=== PATIENT | female | born 1985 | race Caucasian/White ===

== ENCOUNTER 2018-12-30 21:00 | Inpatient (IN) | payer OTHER ==
[2018-12-30] MEDS ORDERED: ELECTROLYTE-148 SOLN 1,000 ML IV SCH (21:45)
[2018-12-30 22:02] VITALS: BMI 32.3
[2018-12-30] MEDS ORDERED: LABETALOL HCL 5 MG/1 ML (100MG/20 ML VIAL) IVPB ONE (22:06)
[2018-12-30 22:07] LABS: BASO % 0.4 % (0-2.0); EOS % 0.1 % (0-4.5); HEMATOCRIT 32.6 % (32.4-45.2); HEMOGLOBIN 11.1 GM/dL (10.7-15.3); LYMPH % 10.1 % (8-40); MCH 29.6 pg (25.7-33.7); MCHC 34.1 g/dl (32.0-36.0); MEAN CELL VOLUME 86.7 fl (80-96); MEAN PLT VOLUME 8.7 fl (7.5-11.1); MONO % 5.9 % (3.8-10.2); NEUT % 83.5 % (42.8-82.8); PLATELET COUNT 299 K/MM3 (134-434); RBC 3.76 M/mm3 (3.60-5.2); RDW 14.5 % (11.6-15.6); WHITE BLOOD COUNT 11.1 K/mm3 (4.0-10.0)
[2018-12-30 22:13] LABS: URINE APPEARANCE CLEAR; URINE BILIRUBIN NEGATIVE (<2.0 mg/dL); URINE COLOR YELLOW; URINE GLUCOSE (UA) NEGATIVE (NEGATIVE); URINE KETONE 2+ (NEGATIVE); URINE LEUK ESTERASE NEGATIVE (NEGATIVE); URINE NITRITE NEGATIVE (NEGATIVE); URINE PROTEIN 3+ (NEGATIVE); URINE UROBILINOGEN NEGATIVE mg/dL (0.2-1.0)
[2018-12-30 22:16] LABS: EPI CELLS RARE /HPF (FEW); URINE MUCUS RARE
[2018-12-30 22:23] LABS: INR 0.87 (0.83-1.09); PROTHROMBIN TIME (PATIENT) 10.3 SEC (9.7-13.0)
[2018-12-30 22:27] LABS: RATIO URIN PROTEIN/URIN CREAT 1.21 MG/DL
[2018-12-30 22:30] LABS: ALK PHOS 156 U/L (45-117); ANION GAP 11 MMOL/L (8-16); BILIRUBIN,TOTAL 0.4 mg/dL (0.2-1); BLOOD UREA NITROGEN 5 mg/dL (7-18); CALCIUM 9.5 mg/dL (8.5-10.1); CHLORIDE 105 mmol/L (98-107); CO2 22 mmol/L (21-32); CREATININE 0.5 mg/dL (0.55-1.3); GLUCOSE,RANDOM 83 mg/dL (74-106); POTASSIUM 3.9 mmol/L (3.5-5.1); SGOT/AST 14 U/L (15-37); SGPT/ALT 20 U/L (13-61); SODIUM 138 mmol/L (136-145); TOT PROT 6.5 g/dl (6.4-8.2); URIC ACID 3.5 mg/dL (2.6-7.2)
[2018-12-30 23:00] LABS: COCAINE, UR NEGATIVE ng/ml (CUTOFF=300); OPIATES, URI NEGATIVE ng/ml (CUTOFF=300); URINE BARBITURATES NEGATIVE ng/ml (CUTOFF=200); URINE BENZODIAZEPINES NEGATIVE ng/ml (CUTOFF=200)
[2018-12-30 23:01] LABS: METHADONE, UR NEGATIVE ng/ml (CUTOFF=300); PHENCYCLIDINE,URINE NEGATIVE ng/ml (CUTOFF=25); URINE AMPHETAMINES NEGATIVE ng/ml (CUTOFF=500)
--- NOTE | 2018-12-30 23:26 | HP ---
Past Medical History - Primary Care Physician PCP:: Mala Dong - Admission Chief Complaint: 33 yrs , 39.4 weeks admitted due to c/o headache & vomiting today, c/o pain cramps since 2.00 PM stronger & mucous Blood stained from vagina History of Present Illness: pt is late registrant at [address] on 12/17/18 at 37 weeks , gestation only 3 visits in the clinic panel 12/17/18 O Pos, Hbsag neg, Rpr nr, Rubella immune, Varicella immune , Hgb A1a2 Sickle neg, Pap Nilm, Hpv neg , gc/ct neg HgbA1c 5.3, Hiv neg , CF screen neg, Quantiferon neg , GBS neg 12/17/18 Ultrasound SLIUP, Vx, 37.5 wks RUTH ANN 19.2, efw 7'7' (65%tile) , Bpp8/8 BP in clinic 125/81, 135/60, 132/83 , urine protein 1+ History Source: Patient, Medical Record Limitations to Obtaining History: No Limitations - Past Medical History 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 when not h/o migraine headache during pregn once , no meds taken . today c/o headache same as migraine headache, & feels everytime she gets utrine contraction). No: Seizure Cardiovascular: Yes: HTN (during currently) Pulmonary: No: Asthma Gastrointestinal: Yes: Other (c/o vomiting today, unable to hold anything in stomach) Renal/: No: UTI ...: 1 ...Para: 0 ...Term: 0 ...: 0 ...Spon : 0 ...Induced : 0 ...Multiple Gestation: 0 ...LMP: 03/28/18 ... Weeks Gestation by Dates: 39.4 ...EDC by Dates: 01/02/19 ...EDC by Sono: 01/02/19 Infectious Disease: No: AIDS, HIV, STD's, Tuberculosis Psych: No: Addictions, Anxiety, Bipolar, Depression, Panic, Psychosis, Schizophrenia, Other Endocrine: No: Diabetes Mellitus, Hypothyroidism - Past Surgical History Hx Myomectomy: No Hx Transabdominal Cerclage: No Additional Surgical History: h/o bilateral breast reduction surgery in 11/[address] - Smoking History Smoking history: Former smoker (quit 2 yrs ago) Have you smoked in the past 12 months: No - Alcohol/Substance Use Hx Alcohol Use: No History of Substance Use: reports: None Home Medications - Allergies Allergies/Adverse Reactions: Allergies Allergy/AdvReac Type Severity Reaction Status Date / Time No Known Allergies Allergy Verified 12/30/18 21:38 - Home Medications Home Medications: Ambulatory Orders Ferrous Sulfate [Iron] 325 mg PO DAILY 12/30/18 Vit,Calc76/Iron/Folic [Pnv 29-1 Tablet] 1 each PO DAILY 12/30/18 Physical Exam - Maternity Vital Signs: Vital Signs Temperature 98.8 F 12/30/18 22:00 Pulse Rate 95 H 12/30/18 21:00 Respiratory Rate 20 12/30/18 21:00 Blood Pressure 134/89 12/30/18 21:00 O2 Sat by Pulse Oximetry (%) Selected Entries 12/30/18 21:00 Weight 200 lb Constitutional: Yes: Well Nourished, Anxious, Moderate Distress Eyes: Yes: WNL HENT: Yes: WNL, Normocephalic Neck: Yes: WNL, Supple Cardiovascular: Yes: WNL, Regular Rate and Rhythm Lungs: Clear to auscultation Breast(s): Yes: Other (scars of breast reduction surgery thickened large breasts) - Abdominal Exam/OB Fundal Height: 39 Number of Fetuses: Single Presentation: Vertex Contractions: Yes Regularity: Irregular (5-6 min) Intensity: Mild/Mod Monitor Mode: External Heart Rate (range): 140-150 Heart Rate Location: [facility] Category: I Accelerations: Uniform Decelerations: None - Vaginal Exam/OB Vaginal Bleediing: Bloody Show Dilatation (cm): 3-4 cm Effacement (%): 90 Amniotic Membrane Status: Intact Presentation: Vertex/Position (exam at 11.10 PM) Station: -1 - Physical Exam Musculoskeletal: Yes: WNL Extremities: Yes: WNL. No: Calf Tenderness Edema: LLE: 1+, RLE: 1+ Integumentary: Yes: Tattoos Deep Tendon Reflex Grade: Normal +2 ...Motor Strength: WNL Psychiatric: Yes: WNL, Alert - Labs Lab Results: CBC, BMP 12/30/18 21:45 12/30/18 21:45 Laboratory Tests 12/30/18 12/30/18 12/30/18 21:30 21:30 21:30 PT with INR INR PTT (Actin FS) Uric Acid GGT AST ALT Urine Protein 3+ H Urine Ketones 2+ H U Random Total Protein 219.7 H Urine Creatinine 181.0 Protein/Creatinin Ratio 1.210 Opiates Screen Negative Methadone Screen Negative Barbiturate Screen Negative Phencyclidine Screen Negative Ur Amphetamines Screen Negative MDMA (Ecstasy) Screen Negative Benzodiazepines Screen Negative Cocaine Screen Negative U Marijuana (THC) Screen Negative 12/30/18 12/30/18 12/30/18 21:45 21:45 21:45 PT with INR 10.30 INR 0.87 PTT (Actin FS) 24.1 L Uric Acid 3.5 GGT AST 14 L ALT 20 Urine Protein Urine Ketones U Random Total Protein Urine Creatinine Protein/Creatinin Ratio Opiates Screen Methadone Screen Barbiturate Screen Phencyclidine Screen Ur Amphetamines Screen MDMA (Ecstasy) Screen Benzodiazepines Screen Cocaine Screen U Marijuana (THC) Screen 12/30/18 21:45 PT with INR INR PTT (Actin FS) Uric Acid GGT 9 AST ALT Urine Protein Urine Ketones U Random Total Protein Urine Creatinine Protein/Creatinin Ratio Opiates Screen Methadone Screen Barbiturate Screen Phencyclidine Screen Ur Amphetamines Screen MDMA (Ecstasy) Screen Benzodiazepines Screen Cocaine Screen U Marijuana (THC) Screen Problem List - Problems (1) with 39 completed weeks gestation Code(s): Z3A.39 - 39 WEEKS GESTATION OF (2) Labor established Code(s): BRZ8002 - (3) PIH ( induced hypertension), antepartum Code(s): O13.9 - GESTATIONAL HTN W/O SIGNIFICANT PROTEINURIA, UNSP TRIMESTER Assessment/Plan 33 yrs 39 .4 wks, PIH 9 Mild) , headache also h/o migraine headache vomiting dehydration early labor gbs neg Plan IV labetalol 10 mg stat given at 10.00 PM requests epidural labor analgesia trial of vaginal delivary MgSo4 iV prophylaxis will start after delivary or earlier if headache does not resolve Note BP max before IV Labetalol at 22.00 hr were 149/98 ( at 21.00 hr), 136/ 101 ( at 21.40 hr ) post labetalol BP 135/98 , 142/95 12.00 midnight pt does not c/o headache , only when she feels strong UC plan epidural
[2018-12-31] MEDS ORDERED: FENTANYL/BUPIVACAINE/NS/PF - PCEA - 50 ML DISP.SYRIN EP ONE ×2 (00:11→05:18)
[2018-12-31] MEDS ORDERED: LIDO 2%/EPI 1:200000 PRESRVFRE (20 ML SDVIAL) ONE (00:14)
[2018-12-31] MEDS ORDERED: BUPIVACAINE HCL/PF 0.25% (2.5MG/ML) 10 ML VIAL ONE (00:14)
[2018-12-31] MEDS ORDERED: NALOXONE HCL 0.4 MG/ML VIAL IVPUSH PRN (00:37)
[2018-12-31] MEDS ORDERED: FENTANYL/BUPIVACAINE/NS/PF - PCEA - 50 ML DISP.SYRIN EP SCH (00:45)
[2018-12-31] MEDS ORDERED: OXYTOCIN 30 UNITS in 0.9% NS 30 UNIT/500 ML INFUS.BAG IVPB ONE (01:31)
--- NOTE | 2018-12-31 01:39 | PN ---
Progress Note, Labor Vaginal Exam #1 Labor Exam Date: 12/31/18 Labor Exam Time: 01:30 Heart Rate (range): 150 Dilatation: 5 Effacement (%): 90 Amniotic Membrane Status: Intact Presentation: Vertex/Position Station: -1 Remarks: fhr cat-1 uc irregular 5-7 min 12.30AM epidural labor analgesia given post epidural BP are normal , no HtN headache is 4/10 plan Pitocin augmentation Selected Entries 12/31/18 12/31/18 12/31/18 00:25 00:30 00:45 Pulse Rate 88 111 H 92 H Blood Pressure 152/95 108/68 91/53 L 12/31/18 12/31/18 01:00 01:15 Pulse Rate 100 H 86 Blood Pressure 111/77 106/68 Vaginal Exam #2 Labor Exam Date: 12/31/18 Labor Exam Time: 04:40 Heart Rate (range): 140-150 Dilatation: 6 Effacement (%): 90 Amniotic Membrane Status: Ruptured (AROM clear) Presentation: Vertex/Position Station: 0 Remarks: fhr cat-1 uc 32-3-4 min Pitocin 7ml/hr Selected Entries 12/31/18 12/31/18 12/31/18 03:15 03:30 04:00 Temperature 98.7 F Pulse Rate 90 98 H Blood Pressure 116/78 116/77 Vaginal Exam #3 Labor Exam Date: 12/31/18 Labor Exam Time: 07:55 Heart Rate (range): 120 Dilatation: 10 Effacement (%): 100 Amniotic Membrane Status: Ruptured Presentation: Vertex/Position Station: +3 Remarks: pt pushing fhr cat-1 uc 2 min Selected Entries 12/31/18 12/31/18 12/31/18 06:30 06:45 07:00 Pulse Rate 99 H 94 H 99 H Blood Pressure 130/84 137/83 138/89
[2018-12-31] MEDS ORDERED: OXYTOCIN 30 UNITS in 0.9% NS 30 UNIT/500 ML INFUS.BAG IVPB SCH (01:45)
[2018-12-31] MEDS ORDERED: OXYTOCIN 20 UNITS in 0.9% NS 20 UNIT/1,000 ML INFUS.BAG IV ONE ×3 (07:48→23:48)
[2018-12-31] MEDS ORDERED: LIDOCAINE HCL 1% PRESERVATIVE FREE - 30ML VIAL ONE (07:48)
[2018-12-31 08:55] LABS: ARTERIAL BLD GAS O2 SATURATION 58.6 % (90-98.9); ARTERIAL BLOOD GAS PCO2 34.3 mmHg (35-45); ARTERIAL BLOOD GAS PO2 27.8 mmHg (80-100)
[2018-12-31 08:56] LABS: VENOUS PC02 32.1 mmHg (38-52); VENOUS PH 7.43 (7.32-7.42); VENOUS PO2 29.3 mmHg (28-48)
[2018-12-31] MEDS ORDERED: oxyCODONE HCL 5 MG TABLET PO PRN (08:57)
[2018-12-31] MEDS ORDERED: BENZOCAINE 28 GM HEMORRHOIDAL OINTMENT TP PRN (08:57)
[2018-12-31] MEDS ORDERED: BENZOCAINE 20% 57 GM BOTTLE TP PRN (08:57)
[2018-12-31] MEDS ORDERED: BISACODYL 10 MG SUPP.RECT RC PRN (08:57)
[2018-12-31] MEDS ORDERED: WITCH HAZEL 50% (TUCKS) 40 PAD/JAR PAD TP PRN (08:57)
[2018-12-31] MEDS ORDERED: METHYLERGONOVINE MALEATE 0.2 MG/1 ML AMP IM PRN (08:57)
[2018-12-31] MEDS ORDERED: OXYTOCIN 20 UNITS in 0.9% NS 20 UNIT/1,000 ML INFUS.BAG IV SCH (09:00)
--- NOTE | 2018-12-31 09:12 | PN ---
Delivery - Delivery Vaginal Delivery: No Problems, Spontaneous (delievered vx presentation BETTINA position, cord around neck x1 , loose . untangled before delivery of shoulder, immediate oral & nasal suction was done . Large amount of amniotic fluid noted after baby ,placenta & membranes delievered completely . Median episiotomy was given which was sutured in layers with chr catgut #2/0 in layers .pr exam mucosa & sphincter was intact . 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 Dehydration was noted mild PIH diagnosed HELLP work up neg she received iv Labetalol 10 mg once epidural labor analgesia BP was maintained wnl pp IV MgSo4 will be started
[2018-12-31] MEDS ORDERED: MAGNESIUM 4GM/H20 - 4 GM/100 ML IVPB IVPB SCH (10:00)
[2018-12-31] MEDS ORDERED: MAGNESIUM SULFATE 20GM/500ML - 20 GM/500 ML INFUS.BAG ONE (10:23)
[2018-12-31] MEDS ORDERED: MAGNESIUM SULFATE IN WATER 4 GM/50 ML IVPB IVPB ONE (10:23)
[2018-12-31] MEDS ORDERED: MAGNESIUM SULFATE 20GM/500ML - 20 GM/500 ML INFUS.BAG IVPB SCH (10:30)
[2018-12-31] MEDS: LABETALOL HCL 200 MG TABLET (FP) PO PRN ×2 (10:44→20:05)
[2018-12-31] MEDS: PRENATAL VITAMINS W/ FOLIC ACID TABLET (FP) PO SCH (10:45)
[2018-12-31] MEDS: FERROUS SO4 325 MG TABLET (FP) PO SCH (17:28)
[2019-01-01] MEDS: ACETAMINOPHEN 325 MG TABLET (FP) PO PRN ×2 (00:05→17:10)
[2019-01-01] MEDS ORDERED: ACETAMINOPHEN 325 MG TABLET (FP) ONE (00:06)
--- NOTE | 2019-01-01 06:17 | PN ---
Post Progress Note - Subjective Subjective: Doing well. On Mag overnight. No ALEXANDER, no N/V. Required one dose of po labetalol to control BP. Type of Delivery: Vital Signs: Vital Signs Temperature 98.6 F 01/01/19 03:00 Pulse Rate 87 01/01/19 06:00 Respiratory Rate 18 01/01/19 06:00 Blood Pressure 124/83 01/01/19 06:00 O2 Sat by Pulse Oximetry (%) 100 12/31/18 10:15 Uterus: Yes: Fundus below umbilicus Abdomen/GI: Yes: Abdomen soft Lochia: Yes: Rubra Lochia, amount: Small Perineum: Yes: Intact Activity: Other (On magnesium in bed) - Labs Labs: CBC WBC 11.1 K/mm3 (4.0-10.0) H 12/30/18 21:45 RBC 3.76 M/mm3 (3.60-5.2) 12/30/18 21:45 Hgb 11.1 GM/dL (10.7-15.3) 12/30/18 21:45 Hct 32.6 % (32.4-45.2) 12/30/18 21:45 MCV 86.7 fl (80-96) 12/30/18 21:45 MCH 29.6 pg (25.7-33.7) 12/30/18 21:45 MCHC 34.1 g/dl (32.0-36.0) 12/30/18 21:45 RDW 14.5 % (11.6-15.6) 12/30/18 21:45 Plt Count 299 K/MM3 (134-434) 12/30/18 21:45 MPV 8.7 fl (7.5-11.1) 12/30/18 21:45 Absolute Neuts (auto) 9.2 K/mm3 (1.5-8.0) H 12/30/18 21:45 Neutrophils % 83.5 % (42.8-82.8) H 12/30/18 21:45 Lymphocytes % 10.1 % (8-40) 12/30/18 21:45 Monocytes % 5.9 % (3.8-10.2) 12/30/18 21:45 Eosinophils % 0.1 % (0-4.5) 12/30/18 21:45 Basophils % 0.4 % (0-2.0) 12/30/18 21:45 Nucleated RBC % 0 % (0-0) 12/30/18 21:45 Retic Count 2.82 % (0.5-1.5) H 12/30/18 21:45 Haptoglobin 138 mg/dL (34-200) 12/30/18 21:45 Problem List - Problems (1) PIH ( induced hypertension), antepartum Code(s): O13.9 - GESTATIONAL HTN W/O SIGNIFICANT PROTEINURIA, UNSP TRIMESTER Assessment/Plan 33yo s/p c/b PEC, PPD1 On Mag x 24 hrs, BPs mostly stable Will d/c Mag today F/U AM labs; PIH labs only significant for 3+ protein, 1.2 pr/cr ratio Transition to PP unit for further observation Possible d/c to home on PPD#2 Hugh Spaulding MD
[2019-01-01] MEDS: LABETALOL HCL 200 MG TABLET (FP) PO PRN (07:45)
[2019-01-01 08:14] LABS: BASO % 0.6 % (0-2.0); EOS % 0.9 % (0-4.5); HEMATOCRIT 25.1 % (32.4-45.2); HEMOGLOBIN 8.4 GM/dL (10.7-15.3); LYMPH % 23.3 % (8-40); MCH 29.7 pg (25.7-33.7); MCHC 33.7 g/dl (32.0-36.0); MEAN CELL VOLUME 88.2 fl (80-96); MEAN PLT VOLUME 8.1 fl (7.5-11.1); MONO % 8.8 % (3.8-10.2); NEUT % 66.4 % (42.8-82.8); PLATELET COUNT 254 K/MM3 (134-434); RBC 2.84 M/mm3 (3.60-5.2); RDW 14.7 % (11.6-15.6); WHITE BLOOD COUNT 13.3 K/mm3 (4.0-10.0)
[2019-01-01] MEDS: FERROUS SO4 325 MG TABLET (FP) PO SCH ×2 (08:20→17:10)
--- NOTE | 2019-01-01 09:23 | PN ---
Progress Note (short form) - Note Progress Note: s/p with median ep / PPD #1 , s/p Mild PIH . s/p MgSo4 IV prpohylaxis no c/o headache now, c/o headache in AM today, she received Po labetalol, getting at PRN bases c/o hemorrhoids , no perineal soreness lochia moderate ut firm below umblicus , non tender perineum intact Selected Entries 01/01/19 01/01/19 01/01/19 05:00 06:00 07:00 Pulse Rate 82 87 92 H Blood Pressure 134/85 124/83 128/94 01/01/19 08:00 Pulse Rate 94 H Blood Pressure 125/77 Laboratory Tests 01/01/19 07:30 WBC 13.3 H Hgb 8.4 L Hct 25.1 L D Plt Count 254 Neutrophils % 66.4 D Imp s/p stable BP well controlled on po labetalol . anemia counselling done Plan transfer pt to pp unit if stable discharge tomorrow Problem List - Problems (1) with 39 completed weeks gestation Code(s): Z3A.39 - 39 WEEKS GESTATION OF (2) Labor established Code(s): MBP0902 - (3) PIH ( induced hypertension), antepartum Code(s): O13.9 - GESTATIONAL HTN W/O SIGNIFICANT PROTEINURIA, UNSP TRIMESTER
[2019-01-01] MEDS: PRENATAL VITAMINS W/ FOLIC ACID TABLET (FP) PO SCH (10:34)
[2019-01-01] MEDS ORDERED: SENNOSIDES/DOCUSATE COMBO (SENNA PLUS) TABLET (UD) PO PRN (22:00)
--- NOTE | 2019-01-02 07:36 | PN ---
Progress Note (short form) - Note Progress Note: ppd 2 no c/o , no head ache or blurred vision Last Vital Signs Temp Pulse Resp BP Pulse Ox 98.4 F 101 H 20 124/70 100 01/02/19 06:00 01/02/19 06:00 01/02/19 06:00 01/02/19 06:00 12/31/18 10:15 Last Vital Signs Temp Pulse Resp BP Pulse Ox 98.4 F 101 H 20 124/70 100 01/02/19 06:00 01/02/19 06:00 01/02/19 06:00 01/02/19 06:00 12/31/18 10:15 abdomen soft, no RUQ tenderness no cva uterus firm lochia mild no calf tenderness DTR normal impression ppd 2 , BP normal no c/o ,no dizziness plan d/c home, follow up H care 1 week for BP check
[2019-01-02 07:57] VITALS: BP 132/83; PULSE 89; TEMP 98.7
[2019-01-02] MEDS: FERROUS SO4 325 MG TABLET (FP) PO SCH (08:22)
[2019-01-02] MEDS: PRENATAL VITAMINS W/ FOLIC ACID TABLET (FP) PO SCH (09:06)
--- NOTE | 2019-01-02 14:56 | DS ---
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 Vital Signs: Vital Signs Temperature 98.7 F 01/02/19 07:20 Pulse Rate 89 01/02/19 07:20 Respiratory Rate 20 01/02/19 07:20 Blood Pressure 132/83 01/02/19 07:20 O2 Sat by Pulse Oximetry (%) 100 12/31/18 10:15 Selected Entries 01/01/19 01/01/19 01/02/19 17:09 21:00 02:00 Blood Pressure 130/79 121/81 131/86 01/02/19 06:00 Blood Pressure 124/70 Constitutional: Yes: Well Nourished, Obese (no), Other (no c/o headache) Eyes: Yes: WNL HENT: Yes: WNL Neck: Yes: WNL Cardiovascular: Yes: WNL Respiratory: Yes: WNL Gastrointestinal: Yes: WNL ...Rectal Exam: Yes: WNL, Hemorrhoids/External Renal/: Yes: WNL ....Post : Yes: Uterus firm, Moderate lochia rubra (perineum intact ..soreness minimal) Breast(s): Yes: WNL, Other (s/p bilateral . breast reduction surgery, breast & bottle feeding, .) Musculoskeletal: Yes: WNL Extremities: Yes: WNL Edema: LLE: 1+, RLE: 1+ Integumentary: Yes: WNL Neurological: Yes: WNL, Alert, Oriented, Other (reflexes normal) ...Motor Strength: WNL Psychiatric: Yes: WNL, Alert, Oriented Labs: CBC, BMP 01/01/19 07:30 12/30/18 21:45 Delivery - Delivery Vaginal Delivery: No Problems, Spontaneous (delievered vx presentation BETTINA position, cord around neck x1 , loose . untangled before delivery of shoulder, immediate oral & nasal suction was done . Large amount of amniotic fluid noted after baby ,placenta & membranes delievered completely . Median episiotomy was given which was sutured in layers with chr catgut #2/0 in layers .pr exam mucosa & sphincter was intact . 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 Dehydration was noted mild PIH diagnosed HELLP work up neg she received iv Labetalol 10 mg once epidural labor analgesia BP was maintained wnl pp IV MgSo4 will be started pp she received MgSo4 iv approx for 24 hrs BP monitored & controlled by PO Labetalol. pt does not need po labetalol upon discharge Anemia is counselled . she is discharged today ,instructed to be followed in the clinic in 1 week for BP check up Discharge Summary Reason For Visit: ADMIT Condition: Stable - Instructions Diet, Activity, Other Instructions: Post Instructions DIET: Continue good diet high in protein, calcium, and iron rich foods. Drink at least eight (8) glasses of water daily in addition to other fluids. ___ Regular diet MEDICATIONS: Continue vitamins and iron as previously directed. Motrin and Tylenol may be taken for minor discomfort. ACTIVITY: Mild to moderate exercise may be started in two (2) weeks. Take frequent rest periods. Resume normal activity after six (6) week check up. WOUND CARE OF OPERATIVE SITE: Continue use of perineal bottle until vaginal discharge stops. Keep area clean. Shower daily. Keep abdominal wound dry. Report any drainage or redness to physician. Tub baths, tampons and douches are not permitted for [address] Breast feeding & or Bottle feeding BREAST CARE: (For those that are not breast feeding): If engorgement occurs: Wear tight fitting bra. Take Tylenol or Motrin for pain. Apply cold packs (ice in bags to each breast ) FAMILY PLANNING: There are many control alternatives to pursue and they should be discussed at your first office visit. You may resume sexual activity after your six (6) week check up. (Remember, breast feeding is not a contraceptive) NEXT PHYSICIAN APPOINTMENT: Be certain to call for a one (1) week appointment, unless otherwise directed. RTC 1 week for BP Check Call Clinic or got to Emergency Dept if you have any of the following: Heavy vaginal bleeding Painful urination Leg pain Unusual odor noted to vaginal bleeding High fever Red streaking noted on breast Referrals: Mala Dong MD [Staff Physician] - Disposition: HOME - Home Medications Comprehensive Discharge Medication List: Ambulatory Orders Ferrous Sulfate [Iron] 325 mg PO DAILY 12/30/18 Vit,Calc76/Iron/Folic [Pnv 29-1 Tablet] 1 each PO DAILY 12/30/18 Acetaminophen [Tylenol .Regular Strength -] 650 mg PO Q3H PRN tablet 01/01/19 Benzocaine Ointment [Americaine Ointment -] 1 applic TP PRN PRN tube 01/01/19 Benzocaine [Americaine 20% [place] -] 1 spray TP PRN PRN bottle 01/01/19 Ferrous Sulfate [Feosol] 325 mg PO BIDWM #60 tab 01/01/19 Labetalol HCl [Normodyne -] 200 mg PO BID #60 tablet 01/01/19 Vitamins (Sjr) - 1 tab PO DAILY #30 tablet 01/01/19 Sennosides/Docusate Sodium [Pericolace -] 2 tablet PO HS PRN #60 tablet [place] Judy 50% (Tucks) [Tucks Pads -] 1 pad TP PRN PRN pad 01/01/19
== END 2019-01-02 12:30 | disposition home or self-care (01) | DRG 560 ==
LOC: JLDR 21:00 → J3W 01-01 09:34
PROVIDERS: ADMIT Obstetrics & Gynecology; ATTEND Obstetrics & Gynecology
PROC: 10E0XZZ Delivery of Products of Conception, External Approach (ICD-10-PCS; principal; 2018-12-30)
PROC: 0W8NXZZ Division of Female Perineum, External Approach (ICD-10-PCS; 2018-12-30)
DX: O13.3 Gestational [pregnancy-induced] hypertension without significant proteinuria, third trimester (principal); E86.0 Dehydration; O69.81X0 Labor and delivery complicated by cord around neck, without compression, not applicable or unspecified; O26.893 Other specified pregnancy related conditions, third trimester; G43.909 Migraine, unspecified, not intractable, without status migrainosus; Z3A.39 39 weeks gestation of pregnancy; Z37.0 Single live birth; Z87.891 Personal history of nicotine dependence
CPT/HCPCS: 36415; 36600; 59409; 80053; 80307; 81003; 81015; 82570; 82803; 82977; 83010; 83735; 84156; 84550; 85025; 85044; 85610; 85730; 86593; 86850; 86900; 86901